=== PATIENT | male | born 1975 | race Caucasian/White ===

== ENCOUNTER 2016-09-20 09:28 | Inpatient (IN) ==
[2016-09-20] MEDS ORDERED: TUBERSOL ID ONE ×2 (13:37→17:40)
[2016-09-20 15:43] LABS: URINE SOURCE CLEAN CATCH
[2016-09-20 15:49] LABS: BILIRUBIN URINE 2+ (NEGATIVE); BLOOD URINE NEGATIVE (NEGATIVE); CLARITY CLEAR (CLEAR); COLOR RED; GLUCOSE URINE NEGATIVE (NEGATIVE); LEUKOCYTES URINE 1+ (NEGATIVE); NITRITE URINE POSITIVE (NEGATIVE); PH URINE 6.5; PROTEIN URINE 1+(30 mg/dL) mg/dL (NEGATIVE); SP GRAVITY URINE 1.015
[2016-09-20 16:01] LABS: URINE CULTURE PL NEEDED? YES; URINE EPITHELIAL CELLS <10 /HPF (<10); URINE RBC <10 /HPF (<10); URINE WBC <10 /HPF (<10)
[2016-09-20 16:02] LABS: UROBILINOGEN URINE 3+(8 mg/dL)
[2016-09-20] MEDS ORDERED: ZOFRAN IV PRN (17:40)
[2016-09-20] MEDS ORDERED: PHENERGAN PO PRN (17:40)
[2016-09-20] MEDS ORDERED: MOTRIN PO PRN (17:40)
[2016-09-20] MEDS ORDERED: IMODIUM PO PRN (17:40)
[2016-09-20] MEDS ORDERED: DULCOLAX PR PRN (17:40)
[2016-09-20] MEDS ORDERED: TYLENOL PO PRN (17:40)
[2016-09-20] MEDS ORDERED: MAALOX PLUS LIQUID PO PRN (17:40)
[2016-09-20] MEDS ORDERED: SENOKOT PO PRN (17:40)
[2016-09-20] MEDS ORDERED: M.V.I.-12 10 ML, FOLIC ACID 1 MG, MAGNESIUM SULFATE 1 GM, THIAMINE 100 MG in NS 1,000 ML IV ONE (17:40)
[2016-09-20] MEDS ORDERED: SALINE LOCK IV FLUID XX ONE (17:40)
[2016-09-20] MEDS ORDERED: ROBAXIN PO PRN (18:01)
[2016-09-20] MEDS ORDERED: BENTYL PO PRN (18:01)
[2016-09-20] MEDS: LIBRIUM PO SCH (18:52)
[2016-09-20] MEDS: NICODERM PATCH TD SCH (18:52)
[2016-09-20 19:18] LABS: AGAP 13; ALBUMIN 3.9 g/dL (3.5-5.0); ALKALINE PHOSPHATASE 100 U/L (32-122); AMYLASE 36 U/L (20-200); BUN 6 mg/dL (8-22); CALCIUM 8.7 mg/dL (8.8-10.2); CHLORIDE 95 mmol/L (98-107); COSMO 265; GOT 178 U/L (10-34); GPT 61 U/L (10-44); LIPASE 41 U/L (13-60); POTASSIUM 3.6 mmol/L (3.5-5.1); SODIUM 131 mmol/L (136-145); TCO2 23 mmol/L (25-35)
[2016-09-20 19:32] LABS: INR 1.03 (0.86-1.15); PROTIME 13.8 Seconds (12.1-15.5); PTT PL 21.3 Seconds (22.6-43.9)
[2016-09-20 20:05] LABS: BASO% 0.6 % (0.0-0.8); EOS# 0.06 X1000 (0.0-0.7); EOS% 1.2 % (0.0-10.0); HEMATOCRIT 34.2 % (42.0-52.0); HEMOGLOBIN 10.1 g/dL (14.0-18.0); IMM GRAN# 0.01 X1000 (0.0-0.04); IMM GRAN% 0.2 % (0.0-0.5); LYMPH# 0.76 X1000 (1.2-3.4); LYMPH% 15.1 % (20.5-51.1); MCH 26.2 PG (27-31); MCHC 29.5 g/dL (33-37); MCV 88.8 FL (81-99); MONO# 0.57 X1000 (0.11-0.59); MONO% 11.3 % (1.7-9.3); NEUT% 71.6 % (42.2-75.2); PLT 77 X1000 (130-400); RBC 3.85 XMIL (4.7-6.1)
[2016-09-20 20:07] LABS: MANUAL DIFF NEEDED? YES
[2016-09-20 20:35] LABS: LYMPHS 12 % (21-51); MONO 4 % (1-9)
[2016-09-20] MEDS: ATIVAN PO PRN (21:20)
[2016-09-20 21:38] LABS: URINE SOURCE VOIDED
[2016-09-20 22:13] LABS: UR AMPHETAMINES QUAL NONE DETECTED (NONE DETECT); UR BARBITUATES QUAL NONE DETECTED (NONE DETECT); UR BENZODIAZEPIN QUAL PRESUMPTIVE POSITIVE (NONE DETECT); UR CANNABINOIDS QUAL NONE DETECTED (NONE DETECT); UR COCAINE QUAL NONE DETECTED (NONE DETECT); UR MDMA QUAL NONE DETECTED (NONE DETECT); UR METHADONE QUAL NONE DETECTED (NONE DETECT); UR METHAMPHETAMINE QUAL NONE DETECTED (NONE DETECT); UR OPIATES QUAL PRESUMPTIVE POSITIVE (NONE DETECT); UR OXYCODONE QUAL NONE DETECTED (NONE DETECT); UR PCP QUAL NONE DETECTED (NONE DETECT); UR TCA QUAL NONE DETECTED (NONE DETECT)
[2016-09-20 22:23] LABS: BILIRUBIN URINE 2+ (NEGATIVE); BLOOD URINE NEGATIVE (NEGATIVE); CLARITY CLEAR (CLEAR); COLOR AMBER; GLUCOSE URINE NEGATIVE (NEGATIVE); LEUKOCYTES URINE 1+ (NEGATIVE); NITRITE URINE NEGATIVE (NEGATIVE); PH URINE 6.5; PROTEIN URINE 1+(30 mg/dL) mg/dL (NEGATIVE); SP GRAVITY URINE 1.015; URINE MICROSCOPIC NEEDED? YES
[2016-09-20 22:41] LABS: URINE RBC <10 /HPF (<10); URINE WBC <10 /HPF (<10)
[2016-09-20 22:42] LABS: URINE EPITHELIAL CELLS <10 /HPF (<10); UROBILINOGEN URINE 3+(8 mg/dL)
[2016-09-21] MEDS: LIBRIUM PO SCH ×4 (00:05→18:45)
[2016-09-21] MEDS: NICODERM PATCH TD SCH (08:01)
[2016-09-21] MEDS: ATIVAN PO PRN ×3 (08:01→21:30)
[2016-09-21] MEDS: FOLIC ACID PO SCH (09:08)
[2016-09-21] MEDS: VITAMIN B-1 PO SCH (09:08)
[2016-09-21] MEDS: THERA M PLUS PO SCH (09:08)
[2016-09-22] MEDS: LIBRIUM PO SCH ×3 (00:23→21:29)
[2016-09-22] MEDS: FOLIC ACID PO SCH (10:06)
[2016-09-22] MEDS: NICODERM PATCH TD SCH (10:06)
[2016-09-22] MEDS: THERA M PLUS PO SCH (10:06)
[2016-09-22] MEDS: TORADOL IV PRN ×2 (10:07→16:14)
[2016-09-22] MEDS: ATIVAN PO PRN ×2 (10:07→16:13)
[2016-09-22] MEDS: VITAMIN B-1 PO SCH (10:07)
[2016-09-22] MEDS ORDERED: LIBRIUM PO SCH (17:00)
[2016-09-22] MEDS ORDERED: M.V.I.-12 10 ML, FOLIC ACID 1 MG, MAGNESIUM SULFATE 1 GM, THIAMINE 100 MG in NS 1,000 ML IV ONE (19:45)
[2016-09-22] MEDS ORDERED: ROBAXIN PO PRN (20:55)
--- NOTE | 2016-09-22 21:36 | PROGRESS NOTE ---
DATE: 09/21/2016 SUBJECTIVE: Patient notes he is feeling a little bit better. He is having less nervousness. He is still anxious. He is still having some shakes. He is still having difficulty eating although overall states he feels better. He notes he is still having some muscle aches as well. OBJECTIVE: Vital Signs: Reviewed. He is afebrile. Pulse 80 to 90. Respiratory 20. BP stable. General: Patient is awake, alert. He is currently in no respiratory distress. He is pleasant to talk with. Speech is regular. Memory is intact. Neck: Supple. Cardiovascular: Regular rate. Chest: Relatively clear. Abdomen: Soft. Extremities: Moves all extremities. Neurologic: No changes. Skin: Warm and dry. No rashes. LABS: Reviewed. ASSESSMENT: 1. Nausea, vomiting. 2. Abdominal pain. 3. Alcohol abuse withdrawal and continued stabilization with Librium. 4. Opiate abuse. 5. Myalgias. 6. Paresthesias improved. 7. Anxiety and depression. 8. Overall Mr. Luo has continued to improve. He is having much less symptoms. He is feeling better. He does not have any tachycardia or acute signs or symptoms of uncontrolled withdrawal. We will continue to follow. Further orders as needed. cc: Nikhil Cast MD
--- NOTE | 2016-09-22 21:41 | PROGRESS NOTE ---
DATE: 09/22/2016 SUBJECTIVE: The patient notes that he is feeling better although he is still having some backache and pains. He thinks that his shaking is a little bit worse this morning than yesterday. He did not sleep well last night. He notes that he did start drinking better yesterday but he is having some nausea this morning. Denies any chest pain or palpitations. Denies any fevers or chills. Denies any headaches, blurry vision, change in vision. OBJECTIVE: Vital Signs: Reviewed. Heart rate is 90, respiratory 20, blood pressure is stable. General: The patient is awake, alert. He is currently in no respiratory distress but he does appear more anxious and nervous than yesterday's examination. Appears more jittery. The tremors in his extremities are worse than yesterday. HEENT: Normocephalic, atraumatic. Neck: Supple. Cardiovascular: Regular rate. Chest: Relatively clear. Abdomen: Soft. Extremities: Moves all extremities. LABS: Reviewed and stable. ASSESSMENT: 1. Alcohol abuse withdrawal. He appears worse than he did yesterday. We will increase his Librium and slow his taper down. We will continue symptomatic medications. 2. Myalgias and back pain. We will add Toradol. 3. Anxiety and depression. Continue counseling. 4. Hypertension stable. 5. Paresthesias. 6. Paroxysmal sweating. 7. Abdominal pain. PLAN: As noted we will increase his Librium back to 50 q.6 hours and will follow. We will continue symptomatic medications. ADDENDUM: Patient was again checked on tonight around 9 o'clock. His symptoms were much improved. He notes that he was feeling tremendously better at this point. He even notes the rash on his face has almost completely gone. Thirty minutes was spent in counseling tonight with the additional 15 minutes this morning. I discussed with patient that he cannot at any point drink alcohol in the future and that he needs to avoid all persons, places, situations in which he had been drinking in the past. I discussed with him outpatient life counseling as well as changes in his habits. cc: Nikhil Cast MD
--- NOTE | 2016-09-22 22:03 | HISTORY AND PHYSICAL ---
CHIEF COMPLAINT: Nausea and vomiting. HISTORY OF PRESENT ILLNESS: The patient is a 41-year-old male who unfortunately has a long history of alcohol abuse/use and alcoholism. He notes that he has been drinking off and on for as long as he can remember. After his dad passed he started drinking heavily again. Then he had a timeframe of abstinence. However, he thought he could have another drink and started. It appears he has been drinking every day. He was going to the [facility] Clinic and when Dr. Edge closed his pain clinic, Mr. Luo started drinking even more heavily, drinking a fifth a day to make up for the 240 mg oxycodone that he was no longer getting. He presents to [facility] on his own stating that he knows he has to stop drinking. He notes he developed a rash on his face for the past couple of days. He denies any fevers or chills. He states he has been nauseated with increased abdominal pain, increased tremors. He has overall felt jittery, nervous, anxious, not been able to sleep. He has continued to have worsening symptoms. SOCIAL HISTORY: He lives at home. He is currently employed in the insurance agency. He has been drinking at least a fifth of vodka a day and taking several hydrocodone pills daily with 1 OxyContin a day. SUBSTANCE ABUSE HISTORY: The patient started drinking at age 17. Over the last year he has increased up to a fifth of vodka a day, sometimes a fifth and a pint. He has been doing this pretty steadily for a year and a half. He started using pain pills at age 30 after an injury. He had been going in to a pain clinic the last several years until this stopped. At that point he rapidly decreased from 240 mg of oxycodone to 4 hydrocodone a day. He denies any other illicit substances. He smoked in the past. Currently he is using smokeless tobacco. PAST MEDICAL HISTORY: 1. History of concussion in 2016. 2. History of seizures and blackouts that were felt to be alcohol related. 3. Chronic anxiety. 4. Depression. 5. History of coronary artery disease with stents in 2002. 6. History of renal disease secondary to alcoholism although he is no longer currently drinking and his kidney function has improved. 7. Hypertension. 8. Chronic reflux. MEDICATIONS: Nexium 40; [place] 10, 6 times a day; Xanax 1 mg 3 times a day; trazodone 150 mg at bedtime p.r.n.; lisinopril 10 mg daily. ALLERGIES: None. FAMILY HISTORY: Sister has a history of substance abuse although she notes she has been clean for several years. REVIEW OF SYSTEMS: CINA score is 29 secondary to nausea, vomiting, jittery, nervous, anxious, tremulousness. He has paresthesias, paroxysmal sweating, unable sit still, tremors with his arms extended. He has had decreased appetite, decreased oral intake, increased nausea and vomiting. Denies any hematuria, hematochezia, melena. Denies any hematemesis or hemoptysis. He has not been sleeping. He is unable to sit still. He gets constantly frightened by seeing things that are not there. He has had a moderate severe headache. He is easily agitated with frequent sweating. He denies any blurry vision or change in vision. He denies any focalized weakness. He denies any falling. He denies any other GI or issues. PHYSICAL EXAMINATION: VITAL SIGNS: Reviewed and stable. GENERAL: Patient is well-developed, well-nourished. He is currently in no real respiratory distress. Speech is regular. Memory is intact. HEENT: Normocephalic, atraumatic. HIEN. NECK: Supple. CARDIOVASCULAR: Mild tachycardia. CHEST: Relatively clear. ABDOMEN: Soft, nontender. EXTREMITIES: Moves all extremities. No edema. SKIN: Warm, dry, no rashes. NEUROLOGIC: Patient is awake, alert. He is oriented. It is difficult to stay on task. He is noted to be shaking. SKIN: He is noted to have an erythematous rash on his face and forehead that covers his nasal bridge. ASSESSMENT: 1. Nausea and vomiting. 2. Abdominal pain. 3. Paresthesias. 4. Paroxysmal sweating. 5. Opiate abuse and withdrawal. 6. Alcohol abuse, withdrawal and admit for stabilization. 7. Chronic nicotine dependence. 8. Chronic anxiety and depression. 9. Hypertension. 10. Malar rash secondary to chronic alcoholism. PLAN: We will admit patient to the hospital. We will begin counseling. We will place him on high-dose Librium, banana bag, symptomatic medications. We will treat his labs if they are abnormal. We will continue to follow. Further orders as needed. cc: Nikhil Cast MD
[2016-09-23] MEDS: ATIVAN PO PRN (02:14)
[2016-09-23] MEDS: LIBRIUM PO SCH ×2 (04:09→10:10)
[2016-09-23] MEDS ORDERED: PRILOSEC PO SCH (07:00)
[2016-09-23] MEDS: NICODERM PATCH TD SCH (10:10)
[2016-09-23] MEDS: VITAMIN B-1 PO SCH (10:10)
[2016-09-23] MEDS: THERA M PLUS PO SCH (10:10)
[2016-09-23] MEDS: FOLIC ACID PO SCH (10:10)
[2016-09-23 11:28] VITALS: BP 145/92
--- NOTE | 2016-09-23 17:07 | DISCHARGE SUMMARY ---
ADMISSION DATE: 09/20/2016 DISCHARGE DATE: 09/23/2016 DISCHARGE DIAGNOSES: 1. Alcohol abuse and withdrawal. 2. Nausea, vomiting. 3. Tremors. 4. Myalgias. 5. Paroxysmal sweating. 6. Paresthesias. 7. Opiate abuse, withdrawal and stabilization as well. CONSULTATIONS: None. PROCEDURE: None. HOSPITAL COURSE: Patient is a 41-year-old male was [facility], treated in usual fashion. Placed on high-dose Librium taper which he tolerated very well. He was weaned down very slowly from the Librium taper. On discharge he is awake, alert. He is in no distress. DISPOSITION: 45 minutes was spent in discharge planning and instructions. Discussed with patient that he needs to avoid all persons, places, situations which he has been drinking in the past. He needs to have no one come over to his house who is actually drinking. Discussed with him he needs an outpatient sponsor. Will continue to wean down his Librium over the next week at home. Discussed with patient he does not need to drive while he is taking Librium. He certainly does not need to take Xanax and Librium together. Will continue to follow. Further orders as needed. cc: Nikhil Cast MD
== END 2016-09-23 13:00 | disposition home or self-care (01) ==
LOC: P.DIRADM 10:52 → P.MEDSURG 11:10
PROVIDERS: ADMIT Family Medicine; ATTEND Family Medicine